=== PATIENT | male | born 1960 | race Caucasian/White ===

== ENCOUNTER 2021-04-23 18:02 | Emergency (ER) | payer MEDICARE, SELFPAY ==
[2021-04-23 18:37] VITALS: BP 153/76; PULSE 87; RESP 17; TEMP 37; O2SAT 98; BMI 28.7
--- NOTE | 2021-04-23 18:42 | W.ED.EXTPRO ---
HPI - Extremity Problem General: Chief complaint: Extremity Injury, Lower Stated complaint: Gout Left Foot Time Seen by Provider: 04/23/21 18:42 Source: patient Mode of arrival: ambulatory Limitations: no limitations History of Present Illness: HPI Narrative: Patient is a nice 60-year-old male who presents to ED today with concerns of gout to his left foot. Patient tells me he has had previous gout infection stating he has a flare approximately once every 2 years. He states about 3 days ago he began noticing redness, warmth, and swelling to his left foot consistent with previous flares. Patient is not on any uric acid lowering therapies. He is not sure what he was treated with on previous flares but states symptoms always subsided. MD Complaint: extremity pain and extremity swelling Onset (ago): day(s) Pain Consistency: constant Location: left, lower extremity and toe Quality: burning and sharp Radiation: none Relieving factors: nothing Exacerbating factors: nothing Associated symptoms: Reports no associated symptoms; Deny chest pain or fever(s) Review of Systems Const: Denies: fever(s), chills, body aches, fatigue or malaise Card: Denies: chest pain Resp: Denies: dyspnea GI: Denies: nausea or vomiting Musc: Reports: extremity pain, extremity swelling and joint warmth (L foot/great toe) Neuro: Denies: numbness in extremities, weakness in extremities or sensory changes [facility] PFSH: Medical History Gout Social History Current gender identity: Male Physical Exam Const: COMMON NORMALS: no acute distress, average body habitus, patient oriented x3, no limitations, healthy appearing, alert and well nourished GENERAL APPEARANCE: cooperative Resp: COMMON NORMALS: normal respiratory effort and clear to auscultation bilaterally AUSCULTATION: clear to auscultation bilaterally Cardio: COMMON NORMALS: regular rate and regular rhythm RATE: regular rate RHYTHM: regular rhythm Extremity: GENERAL: Yes normal exam except as noted OTHER: Patient has erythema, warmth, and mild swelling to left first MTP joint consistent with acute gout infection. Neuro: COMMON NORMALS: patient oriented x3, moves all extremities, no focal motor deficits, no sensory deficits noted and gait normal SENSORIUM/ORIENTATION: Yes alert Skin: NARRATIVE SKIN EXAM: see extremity assessment for pertinent skin findings Course Vital Signs: Vital signs: Vital Signs Temperature 98.6 F 04/23/21 18:37 Pulse Rate 87 04/23/21 18:37 Respiratory Rate 17 04/23/21 18:37 Blood Pressure 153/76 04/23/21 18:37 Pulse Oximetry 98 04/23/21 18:37 MDM - Extremity (Nontraumatic) MDM Narrative: Medical decision making narrative: History and physical examination is consistent with an acute gout flare. Symptoms of been present for about 3 days so I do not think colchicine would be a good option at this point. We will go ahead and place him on a 10-day prednisone taper and indomethacin. Recommend follow-up with PCP next week so they can evaluate for resolution/improvement of symptoms. Strict return to ED precautions verbally given to patient. 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
[2021-04-23 19:06] VITALS: RESP 18
== END 2021-04-23 19:08 | disposition home or self-care (01) ==
PROVIDERS: Emergency Provider Physician Assistant
DX: M10.9 Gout, unspecified (principal)
CPT/HCPCS: 96372; 99283; J2930